=== PATIENT | male | born 1995 | race African-American/Black ===

== ENCOUNTER 2016-10-30 15:10 | Emergency (ER) | payer BC ==
[~2016-10-30] VITALS: Ht 180.3 cm; Wt 79.4 kg
[2016-10-30 15:29] VITALS: BP 119/55
[2016-10-30] MEDS ORDERED: SILV20CR14 TP (15:39)
[2016-10-30] MEDS ORDERED: ACET-704 PO (15:39)
--- NOTE | 2016-10-30 15:39 | PHYS DOC ---
Past Medical History Past Medical History: No Pertinent History Past Surgical History: No Surgical History Alcohol Use: None Drug Use: None Adult General Chief Complaint Chief Complaint: HAND PROBLEM HPI HPI Patient is a 21 year old male who presents with gipson to the left hand after touching a mattress packer exhaust pipe today. He is right handed. Review of Systems Review of Systems Constitutional: Denies fever or chills [] Musculoskeletal: Denies back pain or joint pain [] Integument: gipson to the left hand Neurologic: Denies headache, focal weakness or sensory changes [] Allergies Allergies Allergies Coded Allergies Type Severity Reaction Last Updated Verified No Known Drug Allergies 10/30/16 No Physical Exam Physical Exam Constitutional: Well developed, well nourished, no acute distress, non-toxic appearance. [] Skin: left selby eminence with a first degree burn approximately 6 x 4 cm. Neurovascular exam is intact to the left upper extremity. +2 left radial pulse. Cap refill less than 2 seconds the left fingers. Back: No tenderness, no CVA tenderness. [] Extremities: No tenderness, no cyanosis, no clubbing, ROM intact, no edema. [] Neurologic: Alert and oriented X 3, normal motor function, normal sensory function, no focal deficits noted. [] Psychologic: Affect normal, judgement normal, mood normal. [] Current Patient Data Vital Signs Vital Signs Date Time Temp Pulse Resp B/P (MAP) Pulse Ox O2 Delivery O2 Flow Rate FiO2 10/30/16 15:29 97.9 59 16 99 Room Air 97.9 EKG EKG [] Radiology/Procedures Radiology/Procedures [] Course & Med Decision Making Course & Med Decision Making Pertinent Labs and Imaging studies reviewed. (See chart for details) Patient has a first-degree burn to the left palm. Tetanus is up-to-date. Discharged with Silvadene. Follow-up with the [facility] wound clinic on Tuesday by calling the office to set up a follow-up appointment. Dragon Disclaimer Dragon Disclaimer This electronic medical record was generated, in whole or in part, using a voice recognition dictation system. Departure Departure Impression: Primary Impression: First degree burn of left hand Disposition: HOME, SELF-CARE Condition: STABLE Patient Instructions: Burn Care, [id number] Additional Instructions: You were seen with a burn to the left hand. Ice and elevate the extremity. Apply the prescription medicine Silvadene as ordered. Contact [facility] wound clinic on Tuesday morning and set up a follow-up appointment. The phone number is [phone]. Scripts Acetaminophen With Codeine (TYLENOL WITH CODEINE #3 TABLET) 1 Each Tablet 1 TAB PO PRN Q6HRS Y for PAIN, #30 TAB Prov: DIONTE ROSE APRN 10/30/16 Silver Sulfadiazine (SILVADENE) 20 Gm Cream..g. 1 MESSI TP BID, #50 GM Prov: DIONTE ROSE APRN 10/30/16 Problem Qualifiers Primary Impression: First degree burn of left hand Encounter type: initial encounter Burn of hand location: palm Qualified Codes: T23.152A - Burn of first degree of left palm, initial encounter DIONTE ROSE APRN Oct 30, 2016 15:39
[2016-10-30] MEDS ORDERED: NAPROXEN 500 MG TABLET PO STA (15:45)
[2016-10-30] MEDS ORDERED: silver sulfADIAZINE 1% CREAM 25GM TUBE. TP ONE (16:00)
[2016-10-30] MEDS ORDERED: HYDROcodone/APAP 5/325MG 1 TAB TABLET PO ONE (16:00)
== END 2016-10-30 16:04 | disposition home or self-care (01) ==
LOC: ER 15:10
DX: T23.152A Burn of first degree of left palm, initial encounter (principal); T31.0 Burns involving less than 10% of body surface; X16.XXXA Contact with hot heating appliances, radiators and pipes, initial encounter; Y93.89 Activity, other specified; Y92.89 Other specified places as the place of occurrence of the external cause; Y99.8 Other external cause status
CPT/HCPCS: 16020; 99285-25